=== PATIENT | female | born 1995 | race Caucasian/White ===

== ENCOUNTER 2016-08-15 19:44 | Emergency (ER) | payer OTHER ==
--- NOTE | 2016-08-15 20:06 | CPEKG ---
Heart Rate: 81 RR Interval: 741 P-R Interval: 148 QRSD Interval: 90 QT Interval: 384 QTC Interval: 446 P Pearcy: 48 QRS Pearcy: 82 T Wave Pearcy: 26 EKG Severity - NORMAL ECG - EKG Impression: SINUS RHYTHM Electronically Signed By: Anna Jamison 15-Aug-2016 23:00:48
--- NOTE | 2016-08-15 20:23 | EDPHY ---
H & P Time Seen by Provider: 08/15/16 20:03 HPI/ROS: CHIEF COMPLAINT: Heart palpitations HISTORY OF PRESENT ILLNESS: This patient is a 21 year old female who presents to the Emergency Department complaining of heart palpitations, chest tightness, and tachycardia beginning this morning. She reports that she has been feeling fatigued with generalized malaise and swollen and painful joints intermittently over the past few months. She has had multiple tests performed including screening for Lupus and RA. She was evaluated by her primary care provider recently and is being treated with Amoxicillin for suspected strep. Today, she reports that she experienced acute palpitations, which she describes as "two frequent beats followed by a pause" and reports that she has been tachycardic at 120 based on halter monitor she is wearing at home. She has been seen by a video conference specialist with a normal echocardiogram. REVIEW OF SYSTEMS: Constitutional: +generalized malaise, no fever, no chills Eyes: No visual changes ENT: No sore throat Respiratory: +cough, no shortness of breath Cardiac: +palpitations, +chest tightness, no chest pain Gastrointestinal: +nausea, +vomiting, +diarrhea, no abdominal pain Genitourinary: No hematuria, no dysuria Musculoskeletal: No leg pain or swelling Skin: No rash Neurological: No headache, no numbness, no weakness Psychiatric: +anxious, no depression Past Medical/Surgical History: Exercise-induced asthma. Nut allergy. Remote history of heart murmur. Social History: Non-smoker. Smoking Status: Never smoked Physical Exam: General Appearance: Alert, appears anxious Eyes: Pupils equal and round, no conjunctival pallor or injection ENT, Mouth: Mucous membranes moist Neck: Normal inspection Respiratory: Lungs are clear to auscultation, no wheezing Cardiovascular: Regular rate and rhythm, no murmur Gastrointestinal: Abdomen is soft and non- tender Neurological: A&O, nonfocal, normal gait Skin: Warm and dry, no rash Extremities: Nontender, no pedal edema Psychiatric: Mood and affect normal Constitutional: Initial Vital Signs Temperature (C) 37.1 C 08/15/16 19:52 Heart Rate 102 H 08/15/16 19:52 Respiratory Rate 16 08/15/16 19:52 Blood Pressure 134/93 H 08/15/16 19:52 O2 Sat (%) 95 08/15/16 19:52 O2 Delivery Mode Room Air Allergies/Adverse Reactions: Egg Derived Allergy (Verified 07/28/15 12:23) nut - unspecified [nut] Allergy (Verified 02/21/15 20:34) Home Medications: Medication Instructions Recorded EPINEPHRINE [EPIPEN] 0.3 mg IM ONCE #1 syr 10/17/15 Medical Decision Making - Diagnostics EKG Interpretation: EKG interpreted by me reveals normal sinus rhythm, rate 81, no ST/T changes. Interpretation: normal EKG Imaging: Chest x-ray reviewed by me reveals no acute disease. ED Course/Re-evaluation: The patient was placed on a cardiac technologist here in the ED. We will continue to monitor in the ED. Will proceed with EKG, chest x-ray, and labs to check electrolytes. Patient declines nausea medication at this time. IV established. 1L IV NS administered. software test specialist reveals sinus rhythm throughout her emergency department stay. 2141: I discussed lab, imaging, and EKG results with the patient. I recommended to her that she follow-up with a correctional therapy teacher for further investigation into her chronic symptoms. She understands customary return to the ED precautions and will be discharged home in good condion. Differential Diagnosis: Differential diagnosis includes does not limited to SVT, atrial fibrillation, ventricular dysrhythmia, hypoglycemia, electrolyte abnormality. - Data Points Laboratory Results: Laboratory Results 08/15/16 20:15 08/15/16 20:15 Medications Given: Discontinued Medications Sodium Chloride (Ns) 1,000 mls @ 0 mls/hr IV ONCE ONE PRN Reason: Wide Open Stop: 08/15/16 20:30 Last Admin: 08/15/16 20:38 Dose: 1,000 mls Departure - Departure Disposition: Home, Routine, Self-Care Clinical Impression: Heart palpitations, Nausea Condition: Good Instructions: Palpitations (ED) Additional Instructions: 1. I suggest following up with a correctional therapy teacher. We referred you to Dr. Galvan. 2. Return to the Emergency Department if you experience chest pain, shortness of breath, return of heart palpitations, or other serious concerns. Referrals: Temo Galvan MD [Medical Doctor] - As per Instructions Report Scribed for: Anna Jamison Report Scribed by: Kiara Cope Date of Report: 08/15/16 Time of Report: 20:13 Physician Review and Approval Statement: 08/15/16 20:13 Portions of this note were transcribed by a medical charge entry specialist. I personally performed a history, physical exam, medical decision making, and confirmed accuracy of information the transcribed note.
[2016-08-15] MEDS ORDERED: NS 1,000 ML IV ONE (20:29)
[2016-08-15 20:56] LABS: % IMMATURE GRANULYOCYTES 0.3 % (0.0-1.1); ABSOLUTE IMMATURE GRANULOCYTES 0.03 10^3/uL (0.00-0.10); ADD DIFF? NO; ADD MORPH? NO; ADD SCAN? NO; ATYPICAL LYMPHOCYTE FLAG 10 (0-99); FRAGMENT RBC FLAG 0 (0-99); HEMATOCRIT 38.7 % (38.0-47.0); LEFT SHIFT FLG 0 (0-99); LIPEMIA HEMOLYSIS FLAG 80 (0-99); MEAN CELL HEMOGLOBIN 27.7 pg (27.9-34.1); MEAN CELL HEMOGLOBIN CONCENTR. 33.6 g/dL (32.4-36.7); MEAN CELL VOLUME 82.5 fL (81.5-99.8); MEAN PLATELET VOLUME 9.6 fL (8.7-11.7); PLATELET CLUMPS FLAG 0 (0-99); PLATELET COUNT 361 10^3/uL (150-400); RED BLOOD CELL COUNT 4.69 10^6/uL (4.18-5.33); RED CELL DISTRIBUTION WIDTH 13.6 % (11.5-15.2)
[2016-08-15 21:13] LABS: ANION GAP 14 mEq/L (8-16); CALCIUM 10.1 mg/dL (8.5-10.4); CARBON DIOXIDE 23 mEq/l (22-31); CHLORIDE 104 mEq/L (97-110); CREATININE 0.8 mg/dL (0.6-1.0); GLOMERULAR FILTRATION RATE > 60; GLUCOSE 87 mg/dL (70-100); POTASSIUM 3.9 mEq/L (3.5-5.2); SODIUM 141 mEq/L (134-144)
[2016-08-15 21:58] VITALS: BP 123/74; PULSE 72; RESP 16; TEMP 98.6; O2SAT 95
== END 2016-08-15 21:56 | disposition home or self-care (01) ==
DX: R00.2 Palpitations (principal); R11.0 Nausea; J45.909 Unspecified asthma, uncomplicated